=== PATIENT | female | born 1970 | race Caucasian/White ===

== ENCOUNTER → 2025-08-20 06:48 | Outpatient (REF) | payer BC, SELFPAY | LOC: RAD 06:48 | PROVIDERS: ATTENDING PHYSICIAN Urology; FAMILY PHYSICIAN Internal Medicine | DX: R30.0 Dysuria (principal); N94.89 Other specified conditions associated with female genital organs and menstrual cycle; R82.90 Unspecified abnormal findings in urine; M62.89 Other specified disorders of muscle | CPT/HCPCS: 74178; Q9967 ==